=== PATIENT | female | born 2000 | race Caucasian/White ===

== ENCOUNTER 2020-08-25 12:22 | Day surgery (SDC) | payer SELFPAY ==
[2020-08-24 14:52] VITALS: BMI 36.0
[2020-08-25] MEDS ORDERED: GENTAMICIN SO4 80 MG/2 ML VIAL ONE (14:44)
[2020-08-25] MEDS ORDERED: ceFAZolin SODIUM 1 GM VIAL ONE ×2 (14:44→15:19)
[2020-08-25] MEDS ORDERED: LIDOCAINE 1%/EPI 1:100000 (20 ML MULTI DOSE VIAL) ONE (14:45)
[2020-08-25] MEDS ORDERED: BUPIVACAINE HCL/PF 0.5% (5MG/ML) 10 ML VIAL ONE (14:45)
[2020-08-25] MEDS ORDERED: fentaNYL CITRATE 250 MCG/5 ML VIAL ONE ×3 (14:54→17:33)
[2020-08-25] MEDS ORDERED: PROPOFOL 20 ML ONE ×3 (14:55)
[2020-08-25] MEDS ORDERED: ROCURONIUM BROMIDE 50 MG/5 ML VIAL ONE ×2 (14:55→15:35)
[2020-08-25] MEDS ORDERED: MIDAZOLAM HCL 2 MG/2 ML SINGLE DOSE VIAL ONE (14:55)
[2020-08-25] MEDS ORDERED: VANCOMYCIN 1,000 MG VIAL (RESTRICTED TO ID ONLY) ONE (14:58)
[2020-08-25] MEDS ORDERED: KETOROLAC TROMETHAMINE 30 MG/1 ML VIAL ONE (15:19)
[2020-08-25] MEDS ORDERED: DEXAMETHASONE SOD PHOSPHATE 4 MG/1 ML VIAL ONE (15:19)
[2020-08-25] MEDS ORDERED: ONDANSETRON 4 MG/2 ML VIAL ONE (15:19)
[2020-08-25] MEDS ORDERED: BUPIVACAINE HCL/PF 0.5% (5 MG/ML) 30 ML VIAL IJ ONE (16:01)
[2020-08-25] MEDS ORDERED: LIDOCAINE 1%/EPI 1:100000 (50 ML MULTI DOSE VIAL) INF ONE (16:01)
[2020-08-25] MEDS ORDERED: GLYCOPYRROLATE 0.2 MG/1 ML VIAL ONE (17:55)
[2020-08-25] MEDS ORDERED: NEOSTIGMINE METHYLSULFATE 0.5 MG/ML - 10 ML MDV ONE (17:55)
[2020-08-25] MEDS ORDERED: ONDANSETRON 4 MG/2 ML VIAL IVPUSH PRN (18:44)
[2020-08-25] MEDS ORDERED: oxyCODONE HCL 5 MG TABLET PO PRN ×2 (18:44)
[2020-08-25] MEDS ORDERED: PROMETHAZINE HCL 25 MG/1 ML VIAL ONE (18:58)
[2020-08-25] MEDS: PROMETHAZINE HCL 25 MG/1 ML VIAL IVPUSH PRN ×2 (19:01→19:23)
[2020-08-25 19:48] VITALS: TEMP 98.6
[2020-08-25 20:06] VITALS: BP 117/62; PULSE 89
--- NOTE | 2020-08-29 11:29 | OP ---
DATE OF OPERATION: 08/25/2020 PREOPERATIVE DIAGNOSES: 1. Left tuberous breast deformity. 2. Asymmetry of breasts. POSTOPERATIVE DIAGNOSES: 1. Left tuberous breast deformity. 2. Asymmetry of breasts. PROCEDURE: 1. Bilateral subglandular breast implant insertion (Right: Sientra [id number]; Left: Sientra [id number]). 2. Bilateral mastopexies (Right: Varma pattern; Left: Periareolar). ATTENDING SURGEON: Breezy Wei MD ANESTHESIA: General endotracheal. ESTIMATED BLOOD LOSS: 100 mL. SPECIMEN: None. DRAINS: None. COMPLICATIONS: None. CONDITION: Stable to recovery room, extubated. 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 She has profound asymmetry between her breasts as a result. The patient was evaluated preoperatively for correction of her congenital breast deformity and she is most appropriately a candidate for bilateral breast implant insertion with bilateral mastopexies. The risks, benefits and alternatives of the surgical procedures were discussed with the patient and her mother preoperatively in detail on several occasions and all questions were answered. The risks include but are not limited to bleeding, infection, residual asymmetry, need for revision of one or both breasts, decreased or absent nipple sensation, partial or complete nipple loss. The patient understands these risks and has elected to proceed with surgery. PROCEDURE: After proper identification and marking of the patient in the preoperative holding area, the patient was transported to the operating room, placed supine on the table. While noninvasive anesthesia monitors were applied, intravenous access was established. General anesthesia was administered and the patient was intubated without difficulty. SCD boots were applied to bilateral lower extremities. Intravenous antibiotics were then given. At this point the patient's bilateral breasts were prepped and draped in the usual sterile fashion. After a timeout was performed, a local anesthetic mixture of 1% lidocaine with epinephrine mixed in a 1:1 fashion with 0.5% Marcaine was infiltrated along the bilateral breast markings. Attention was first turned towards the left breast where a periareolar incision was made from the 3 o'clock to 9 o'clock position. The incision was carried down through the subcutaneous tissue and dissection was then performed through the inferior gland down to a subglandular plane. Based on the base width diameter of the anticipated left breast implant, a subglandular pocket was developed. Once an appropriate pocket had been developed, a left breast saline sizer was inserted in the subglandular plane. The periareolar incision was temporarily stapled closed and the left breast sizer was gradually inflated with sterile injectable saline. There was noted to be constriction of the lower pole and, therefore, the breast implant sizer was removed and at this point radial scoring of the lower pole breast tissue was performed in order to achieve maximum inferior pole expansion. Once adequate radial scoring had been completed, the left breast pocket was irrigated and hemostasis was ensured. The left breast implant sizer was replaced and the incision temporarily stapled closed. It was gradually inflated and noted to have an ideal correction of the patient's preoperative deformity with 500 mL of saline. Attention at this point was turned towards the right breast where a 42-mm cookie cutter was centered around the nipple-areolar complex. This incision was made with a No. 15 blade. The inferior periareolar incision was then carried down through the full-thickness of the subcutaneous tissue and gland down into a subglandular plane. A subglandular pocket was then developed on the right breast according to the anticipated base width dimension of the breast implant. Once an adequate subglandular pocket had been developed, a right breast implant saline sizer was inserted and was gradually inflated. There was noted to be ideal symmetry with 300 mL of volume. The patient at this point was sat up and the location of the nipple-areolar complexes was confirmed based on distance from the sternal notch. In order to equilibrate this, the left breast required a circumareolar mastopexy. The right breast mastopexy markings were then tailor tacked and in order to equilibrate the [id number] distances, a full Varma pattern mastopexy was required. This was marked based on the tailor tacking and once symmetric positioning of the nipple-areolar complex and the [id number] distances was achieved, the patient was laid back down. Attention was turned first towards the right breast where the Varma skin reduction pattern incisions were made. A superior pedicle was designed and deepithelialized. The inferior breast skin was removed with electrocautery just below the level of the dermis. The resected skin was passed off the field to be discarded. At this point the saline sizer was removed and the right breast pocket was irrigated with triple antibiotic solution followed by Betadine solution. Next, gloves were changed and a Beth funnel was inserted to insert a Sientra smooth round moderate profile breast implant measuring 300 mL. Once proper positioning and orientation of this was confirmed, the T-point of the Varma pattern was reapproximated along the inframammary fold using a 2-0 nylon in a half-buried horizontal mattress fashion. Next, the vertical and horizontal limbs were temporarily stapled closed and then the nipple-areolar complex was transposed and was inset using a 3-0 Biosyn in a buried deep dermal fashion followed by a 4-0 nylon in a simple running fashion. The vertical and horizontal limbs were then closed in layers with a 2-0 Vicryl in interrupted buried deep dermal fashion followed by a 3-0 V-Loc suture in a running subcuticular fashion. Once the right breast closure was completed, attention was turned towards the left breast. The circumareolar mastopexy markings were confirmed and then incised. A 42-mm cookie cutter was centered on the nipple-areolar complex as well and this was incised as well. The superior crescent of skin was then deepithelialized. Next, the left breast saline sizer was removed and the left breast subglandular pocket was irrigated with triple antibiotic solution followed by Betadine solution. Gloves were again changed and the Beth funnel was used to insert a Sientra smooth round moderate profile silicone breast implant measuring 510 mL. Once proper positioning and orientation of the implant was confirmed, the left breast nipple-areolar complex was transposed superiorly and was inset to the surrounding skin edges using a 3-0 Biosyn in a buried deep dermal fashion followed by a 4-0 nylon in a simple running fashion. Once bilateral breast incisions were closed, Mastisol and Steri-Strips were placed over all closure lines followed by Kerlix, ABD pads and a soft surgical bra. The patient at this point was fully awakened and was extubated without incident and transported to recovery room in stable condition. BREEZY WEI M.D. SALEEM/[id number]
== END 2020-08-25 21:20 | disposition home or self-care (01) ==
LOC: FASU 12:22
PROVIDERS: ATTEND Plastic Surgery
PROC: 0HRV0JZ Replacement of Bilateral Breast with Synthetic Substitute, Open Approach (ICD-10-PCS; principal; 2020-08-25 15:31)
PROC: 0H0V0JZ Alteration of Bilateral Breast with Synthetic Substitute, Open Approach (ICD-10-PCS; 2020-08-25 15:31)
DX: Q83.8 Other congenital malformations of breast (principal)
CPT/HCPCS: 82962; 84703; 94760